=== PATIENT | female | born 1980 | race Two or more races ===

== ENCOUNTER 2021-06-04 14:27 | Emergency (ER) | payer MEDICAID ==
[~2021-06-04] VITALS: Ht 157.5 cm; Wt 63.6 kg
[2021-06-04 16:10] LABS: COVID AG,FIA SOURCE NASOPHARYNGEAL
[2021-06-04 16:13] LABS: ANION GAP 12 mmol/L (8-16); CALCIUM, TOTAL 8.8 mg/dL (8.8-10.5); CARBON DIOXIDE 23 mmol/L (22-29); CHLORIDE 108 mmol/L (98-107); CREATININE 0.75 mg/dL (0.60-1.30); GLOMERULAR FILTR. RATE CALC > 60 mL/min (>60); GLUCOSE,RANDOM 83 mg/dL (70-110); POTASSIUM 3.4 mmol/L (3.5-5.1); SODIUM SERUM 143 mmol/L (136-145); UREA NITROGEN, BLOOD 16 mg/dL (7-18)
[2021-06-04] MEDS ORDERED: POTASSIUM CHLORIDE 20 MEQ ER TABLET PO ONE (16:30)
[2021-06-04 16:43] VITALS: BP 105/59
== END 2021-06-04 16:57 | disposition home or self-care (01) ==
LOC: EMS 15:34
DX: J40 Bronchitis, not specified as acute or chronic (principal); R19.7 Diarrhea, unspecified; E87.6 Hypokalemia; Z20.822 Contact with and (suspected) exposure to COVID-19
CPT/HCPCS: 71045; 80048; 99284; 36415-L1; 36415-TC

== ENCOUNTER 2021-06-09 16:04 | Emergency (ER) | payer MEDICAID ==
[~2021-06-09] VITALS: Ht 157.5 cm; Wt 63.6 kg
[2021-06-09 20:05] LABS: COVID AG,FIA SOURCE NASOPHARYNGEAL
[2021-06-09 21:16] LABS: INFLUENZA TYPE A NEGATIVE FOR TYPE A (NEGATIVE); INFLUENZA TYPE B NEGATIVE FOR TYPE B (NEGATIVE)
[2021-06-09] MEDS ORDERED: BENZ-70 PO (21:27)
[2021-06-09] MEDS ORDERED: AZIT-84 PO (21:27)
[2021-06-09] MEDS ORDERED: D-ME473S53 PO (21:27)
[2021-06-09 21:28] VITALS: BP 101/60
== END 2021-06-09 21:50 | disposition home or self-care (01) ==
LOC: EMS 16:28
DX: J20.9 Acute bronchitis, unspecified (principal); J45.909 Unspecified asthma, uncomplicated; R11.2 Nausea with vomiting, unspecified; Z20.822 Contact with and (suspected) exposure to COVID-19
CPT/HCPCS: 71045; 87804; 99284

== ENCOUNTER 2021-07-26 15:58 | Emergency (ER) | payer MEDICAID ==
[~2021-07-26] VITALS: Ht 162.6 cm; Wt 65.9 kg
[~2021-07-26 15:58] MED LIST: AZIT-84 PO; BENZ-70 PO; D-ME473S53 PO
[2021-07-26] MEDS ORDERED: LORazepam 2 MG/ML VIAL IVP ONE (17:30)
[2021-07-26 17:45] LABS: BASOPHILS % (AUTO) 0.9 % (0.0-2.0); EOSINOPHILS % (AUTO) 1.8 % (1.0-6.0); HEMATOCRIT 33.6 % (36-46); HEMOGLOBIN 11.7 g/dL (12.0-16.0); LYMPHOCYTES # (AUTO) 2.2 K/uL (1.0-4.8); LYMPHOCYTES % (AUTO) 32.3 % (22.0-44.0); MEAN CORPUSCULAR HEMOGLOBIN 32.5 pg (26.0-34.0); MEAN CORPUSCULAR HGB CONC 34.7 G/dL (31.0-37.0); MEAN CORPUSCULAR VOLUME 93 fL (80-100); MONOCYTES # (AUTO) 0.5 K/uL (0.1-1.0); MONOCYTES % (AUTO) 6.8 % (2.0-9.0); NEUTROPHILS # (AUTO) 3.9 K/uL (1.8-7.7); NEUTROPHILS % (AUTO) 58.2 % (40.0-70.0); PLATELET COUNT (AUTO) 300 K/uL (150-450); RED BLOOD CELL COUNT(AUTO) 3.59 MIL/uL (4.00-5.20); RED CELL DISTRIBUTION WIDTH 13.1 % (11.5-14.5)
[2021-07-26] MEDS ORDERED: KETOROLAC TROMETHAMINE 30 MG/ML VIAL IVP ONE (17:45)
[2021-07-26] MEDS ORDERED: ACETAMINOPHEN 500 MG TABLET PO ONE (17:45)
[2021-07-26 17:54] LABS: ANION GAP 13 mmol/L (8-16); CARBON DIOXIDE 20 mmol/L (22-29); CHLORIDE 107 mmol/L (98-107); CREATININE 0.63 mg/dL (0.60-1.30); GLUCOSE,RANDOM 103 mg/dL (70-110); POTASSIUM 3.5 mmol/L (3.5-5.1); SODIUM SERUM 140 mmol/L (136-145); UREA NITROGEN, BLOOD 17 mg/dL (7-18)
[2021-07-26 17:55] LABS: CALCIUM, TOTAL 8.4 mg/dL (8.8-10.5); GLOMERULAR FILTR. RATE CALC > 60 mL/min (>60)
[2021-07-26 18:00] LABS: ALANINE AMINOTRANSFERASE 13 U/L (12-78); ALBUMIN 3.6 g/dL (3.4-5.0); ALKALINE PHOSPHATASE 63 U/L (46-116); ASPARTATE AMINOTRANSFERASE 9 U/L (15-37); BILIRUBIN,TOTAL 0.2 mg/dL (0.1-1.0); TOTAL PROTEIN, SERUM 7.3 g/dL (6.4-8.2)
[2021-07-26] MEDS ORDERED: TOPI25 PO (18:54)
[2021-07-26] MEDS ORDERED: TOPI100T37 PO (18:54)
[2021-07-26] MEDS ORDERED: LAMO100 PO (18:54)
[2021-07-26] MEDS ORDERED: LEVE500T20 PO (18:54)
[2021-07-26] MEDS ORDERED: IBUP-1554 PO (21:06)
[2021-07-26] MEDS ORDERED: LORA-1000 PO (21:06)
[2021-07-26 21:20] VITALS: BP 110/72
== END 2021-07-26 21:21 | disposition home or self-care (01) ==
LOC: EMS 16:07
DX: R51.9 Headache, unspecified (principal); G40.909 Epilepsy, unspecified, not intractable, without status epilepticus; R20.2 Paresthesia of skin
CPT/HCPCS: 36415; 70450; 73562; 80053; 82962; 84703; 85025; 96374; 96375; 99285; J1885; J2060

== ENCOUNTER 2022-08-01 19:25 | Emergency (ER) | payer MEDICAID ==
[~2022-08-01] VITALS: Ht 162.6 cm; Wt 65.9 kg
[~2022-08-01 19:25] MED LIST changes: -AZIT-84 PO; -BENZ-70 PO; -D-ME473S53 PO; +IBUP-1554 PO; +LAMO100 PO; +LEVE500T20 PO; +LORA-1000 PO; +TOPI100T37 PO; +TOPI25 PO
[2022-08-01 19:35] VITALS: BP 118/78
[2022-08-01] MEDS ORDERED: ALBUTEROL SULFATE 2.5 MG/0.5 ML NEB SOLUTION NEB ONE (22:45)
[2022-08-01] MEDS ORDERED: 0.9% SODIUM CHLORIDE 5 ML NEB SOLUTION NEB ONE (23:27)
== END 2022-08-02 01:46 | disposition home or self-care (01) ==
LOC: EMS 19:32
DX: J20.9 Acute bronchitis, unspecified (principal); J45.909 Unspecified asthma, uncomplicated; Z90.49 Acquired absence of other specified parts of digestive tract; Z98.890 Other specified postprocedural states
CPT/HCPCS: 71046; 94640; 99283; J7613